=== PATIENT | female | born 1965 | race Caucasian/White ===

== ENCOUNTER 2016-12-04 12:45 | Emergency (ER) | payer OTHER ==
[~2016-12-04 12:45] MED LIST: ACITRETIN PO; AMLODIPINE BESYL5 MG PO; AMOXICILLIN-CL1 EACH PO; ASPIRIN81 MG PO; ATORVASTATIN CA10 MG PO; BACTRIM DS TABL1 TAB PO; BENADRYL PO; IBUPROFEN PO; KEFLEX PO; LISINOPRIL10 MG PO; MACROBID 100 M100 MG PO; PREDNISONE PO; PROVERA PO; TYLOX 5/500 CAP1 CAP PO; VICODIN 5/1 TAB 5/50 PO; ZANTAC PO; ZESTORETIC 10/11 TAB PO; [UNRECOGNIZED DRUG - OTHER] PO
== END 2016-12-04 12:58 | disposition home or self-care (01) ==
LOC: SED 12:45
DX: R21 Rash and other nonspecific skin eruption (principal); R09.81 Nasal congestion; T36.8X5A Adverse effect of other systemic antibiotics, initial encounter; I10 Essential (primary) hypertension
CPT/HCPCS: 99282